=== PATIENT | male | born 1955 | race Caucasian/White ===

== ENCOUNTER 2021-05-29 08:16 | Emergency (ER) | payer MEDICARE, OTHER, SELFPAY ==
[2021-05-29 08:20] VITALS: RESP 8
[2021-05-29 08:22] VITALS: PULSE 0
--- NOTE | 2021-05-29 08:30 | ED.GENADUL_ITS ---
Discharge Plan Disposition Patient Disposition: Discharge Details Clinical Impression: Cardiac arrest Primary Care Provider: Elvis Malcolm ED Provider: Kale Granados Medical Decision Making 832 -- 66yo m with end-stage kidney function on renal dialysis arrives via EMS from dialysis center after prolonged code fine ventricular fibrillation refractory to multiple defibrillation attempts, amiodarone, epinephrine, bicarb and calcium, receiving chest compressions and being mechanically ventilated by EMS. Patient was noted to be in PEA just prior to arrival. Per EMS patient was Covid positive weeks ago. Care was transitioned seamlessly to ED team on arrival. CPR/ACLS continued. RT at bedside and performing rescue breathing. IO access assessed and functioning. ET tube placement assessed and functioning. Lidocaine 100 mg IO administered. Cardiac pads in anterior lateral position were removed and replaced with anterior posterior position and another defibrillation attempt at maximal voltage was made and CPR immediately resumed. Patient was found to be in asystole. Bedside [id number] cardiac ultrasound was performed and no cardiac activity, ventricles noted to be somewhat dilated, no pericardial effusion. Despite prolonged aggressive resuscitation patient has unfortunately not had return of spontaneous circulation and remains in asystolic cardiac arrest. Additional intervention was deemed futile. Patient pronounced at 828. Coding Clerks Supervisor bilingual medical assistant at bedside serving as EMS provider was involved in initial field response and does not recommend bilingual medical assistant review. Dialysis Center medical records were reviewed and noted medication list. Patient has no medical records in our EMR. 855 -- I spoke with patient's and discussed prehospital and ED course and I offered condolences for her loss. HPI General Mode of arrival: EMS . Date/Time Provider Initiated Documentation: 05/29/21 08:44 . Limitations to Documentation: altered mental status . Information obtained by: EMS . History of Present Illness 66 year old M presents to the emergency department with the chief complaint of ., HPI Narrative: 66-year-old male with history of end-stage renal disease on hemodialysis, became unresponsive during dialysis and found to be in cardiac arrest around 730. CPR was initiated. EMS responded and continued CPR provided ACLS care. Patient found to be in V. fib initially which was refractory to multiple defibrillation attempts as well as amiodarone, epinephrine, bicarb and calcium. Patient was intubated and IO placed in field. Patient had prolonged resuscitation in the field and was noted to be in PEA and decision was made to transfer to hospital for further care. EMS note patient recently did have COVID-19. History and review of systems limited secondary to patient unresponsive. Review of Systems Unobtainable due to endotracheal tube PFSH All Active Problems Cardiac arrest (Acute) Social History Smoking risk assessment performed?: No Exam Const General: patient mechanically ventilated Nutritional Appearance: obese Limitations: other limitations (not responsive) HENMT Head: atraumatic Other: ET tube intact Eyes Pupils: fixed Neck Neck: trachea midline and supple Resp Auscultation: rales bilaterally Cardio Other: no pulse GI Inspection: non-distended Skin General skin exam: no rashes or lesions noted Neuro General: other (unresponsive) Critical Care Time Critical Care Time Critical Care Time: Yes Total Critical Care Time: 40 Attestation: I spent greater than 40 minutes addressing this patient's immediate life threats. Please see MDM section of note. This time was spent engaged in work directly related to the patient's care, exclusive of separate procedures, and failure to initiate these interventions would have likely resulted in clinically significant or life threatening deterioration in the patient's condition.
--- NOTE | 2021-05-29 08:52 | RESPIRATORY ---
Pt arrived intubated with ongoing cpr.
== END 2021-05-29 09:58 | disposition expired ==
PROVIDERS: Emergency Provider Student in an Organized Health Care Education/Training Program; PCP Internal Medicine Nephrology
DX: I46.9 Cardiac arrest, cause unspecified (principal)
CPT/HCPCS: 92950; 99291